=== PATIENT | female | born 1955 | race Caucasian/White ===

== ENCOUNTER 2016-10-24 19:56 | Emergency (ER) | payer BC, OTHER ==
[~2016-10-24] VITALS: Ht 177.8 cm; Wt 102.3 kg
[2016-10-24] MEDS ORDERED: ONDANSETRON 2 MG/ML (Z0FRAN) 2 ML VIAL IV ONE (20:30)
[2016-10-24] MEDS ORDERED: SODIUM CHLORIDE FLUSH 10 ML SYR IV PRN (20:30)
[2016-10-24] MEDS ORDERED: SODIUM CHLORIDE FLUSH 3 ML SYR IV PRN (20:30)
[2016-10-24 21:05] LABS: BASOPHILS % (AUTO) 1 % (0-2); EOSINOPHILS # (AUTO) 0.1 10^3uL; EOSINOPHILS % (AUTO) 1 % (0-4); LYMPHOCYTES # (AUTO) 0.6 X10^3; MEAN CORPUSCULAR HEMOGLOBIN 29.5 PG (26.0-34.0); MEAN CORPUSCULAR VOLUME 83 FL (80-100); MEAN PLATELET VOLUME 9.6 FL (6.0-9.5); MONOCYTES # (AUTO) 0.5 X10^3; MONOCYTES % (AUTO) 7 % (3-11); NEUTROPHILS # (AUTO) 5.4 X10^3; NEUTROPHILS % (AUTO) 82 % (51-67); PLATELET COUNT 222 10^3uL (150-450); WHITE BLOOD COUNT 6.55 10^3uL (4.0-11.0)
[2016-10-24 21:07] LABS: MEAN CORPUSCULAR HGB CONC 35.7 g/dL (31.0-37.0)
[2016-10-24 21:11] LABS: ALBUMIN 4.7 g/dL (3.4-5.0); ANION GAP 16.7 MEQ/L (3-15); CALCULATED IONIZED CALCIUM 3.7 mg/dL (3.8-4.6)
--- NOTE | 2016-10-24 21:25 | NUR ---
Saline Lock insertion site without redness, swelling, drainage, or tenderness to light palpation. IVF continue to infuse well per pump. Pt denies nausea. Still unable to provide urine specimen - reminded to call staff when she thinks she can get up to toilet to provide specimen - pt verbalizes "okay" in response. Spouse remains in room with patient.
[2016-10-24 21:51] LABS: INFLUENZA VIRUS TYPE A ANTIBOD Negative (NEGATIVE); INFLUENZA VIRUS TYPE B ANTIBOD Negative (NEGATIVE)
--- NOTE | 2016-10-24 21:58 | NUR ---
Patient report to Bhavya Salas RN who assumes care of the patient.
[2016-10-24 22:01] LABS: BILIRUBIN,URINE Negative (Negative); CLARITY,URINE Clear; COLOR,URINE Yellow; GLUCOSE, URINE (UA) Negative (Negative); LEUKOCYTE ESTERASE ,URINE Negative (Negative); PH,URINE 5.5 (5.0 - 8.0); UROBILINOGEN,URINE 0.2 mg/dL (0.2-1.0)
[2016-10-24 22:10] LABS: URINE CENTRIFUGED VOLUME 12 mL
[2016-10-24 22:46] VITALS: BP 144/89
== END 2016-10-24 22:46 | disposition home or self-care (01) ==
LOC: ED 19:57
DX: A08.4 Viral intestinal infection, unspecified (principal)
CPT/HCPCS: 36415; 80053; 81003; 81015; 83690; 85025; 87502; 96361; 96374; 99283; J2405; J7030

== ENCOUNTER → 2016-10-27 | Outpatient (REF) | payer BC | LOC: LAB 12:47 | PROVIDERS: ATTEND Physician Assistant | DX: R05 Cough (principal); J02.9 Acute pharyngitis, unspecified; R06.02 Shortness of breath; R09.02 Hypoxemia | CPT/HCPCS: 87486; 87581; 87633; 87798 ==